=== PATIENT | male | born 1985 | race Caucasian/White ===

== ENCOUNTER 2024-01-25 17:30 | Emergency (ER) | payer SELFPAY ==
[2024-01-25 17:34] VITALS: BP 148/79; PULSE 78; O2SAT 100
[2024-01-25 17:51] VITALS: BP 137/100; PULSE 76; RESP 18; TEMP 36.7; O2SAT 100; BMI 19.3
[2024-01-25 17:55] LABS: Glucose, Whole Blood 94 mg/dL (60-115)
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
--- NOTE | 2024-01-25 18:28 | PC.NURSE ---
Patient alert and oriented x3 Patient denies any pain. states he feels fine. 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 Gretel BLAS knows and spoke to patient.
== END 2024-01-25 18:53 | disposition left against medical advice (07) ==
LOC: HO.ED 18:38
PROVIDERS: Emergency Provider Emergency Medicine
DX: M79.604 Pain in right leg (principal)
CPT/HCPCS: 82947; 99281; 99282